=== PATIENT | female | born 1980 | race Caucasian/White ===

== ENCOUNTER 2020-06-25 06:31 | Outpatient (REF) | payer OTHER, SELFPAY ==
[2020-06-25 07:59] LABS: MANUAL DIFF FLAG NO
[2020-06-25 08:10] LABS: Basophils Percent Auto 0.5 % (0-2); Eosinophils Absolute Auto 0.2 X10*3/uL (0.0-0.4); Eosinophils Percent Auto 2.2 % (0-4); Hematocrit 40.5 % (37-47); Hemoglobin 13.3 g/dl (12.0-16.0); Imm Gran Abs Auto 0.03 X10*3/uL (0.00-0.03); Imm Gran Pct Auto 0.4 % (0.0-0.4); Lymphocytes Absolute Auto 2.2 X10*3/uL (1.2-4.9); Lymphocytes Percent Auto 27.4 % (20-40); Mean Corpuscular HGB Conc 32.8 g/dl (31.0-35.0); Mean Corpuscular Hemoglobin 30.4 pg (27.0-33.0); Mean Corpuscular Volume 92.7 fL (80-98); Monocytes Absolute Auto 0.5 X10*3/uL (0.1-1.2); Monocytes Percent Auto 5.7 % (2-11); Neutrophils Absolute Auto 5.2 X10*3/uL (2.0-8.3); Neutrophils Percent Auto 63.8 % (45-73); Platelet Count 308 X10*3/uL (160-400); Red Blood Count 4.37 X10*6/uL (4.20-5.50); Red Cell Distribution Width 12.3 % (11.0-16.0); White Blood Count 8.1 X10*3/uL (4.8-10.8)
[2020-06-25 08:38] LABS: Alanine Aminotransferase 11 U/L (0-31); Albumin Level 4.1 g/dL (3.5-5.0); Alkaline Phosphatase 60 U/L (39-117); Anion Gap 11 (12-20); Aspartate Amino Transferase 14 U/L (5-31); Bilirubin Total 0.8 mg/dL (0.0-1.0); Blood Urea Nitrogen 15 mg/dL (9-16); Calcium 8.7 mg/dL (8.4-10.2); Carbon Dioxide 28 mmol/L (22-29); Chloride 103 mmol/L (96-108); Estimated Glomerular Filt Rate > 60; Glucose Fasting 84 mg/dL (60-99); Potassium 4.3 mmol/l (3.3-5.1); Sodium 138 mmol/L (135-145); Total Protein 6.8 g/dL (6.5-8.0)
[2020-06-25 09:00] LABS: TSH reflex Free T4 0.43 mIU/mL (0.32-4.0)
== END 2020-06-25 06:32 | disposition home or self-care (01) ==
LOC: HO.LAB 06:31
PROVIDERS: PCP Internal Medicine; Visit Provider Internal Medicine
DX: E03.9 Hypothyroidism, unspecified (principal); R25.1 Tremor, unspecified
CPT/HCPCS: 36415; 80053; 84443; 85025

== ENCOUNTER 2020-07-09 16:08 | Outpatient (REF) | payer OTHER, SELFPAY | END 2020-07-09 16:09 | disposition home or self-care (01) | LOC: HO.LAB 16:08 | PROVIDERS: PCP Internal Medicine; Visit Provider Internal Medicine | DX: Z20.828 Contact with and (suspected) exposure to other viral communicable diseases (principal) | CPT/HCPCS: C9803; U0003 ==

== ENCOUNTER → 2020-07-20 14:51 | Outpatient (BNVA) | payer OTHER, SELFPAY | PROVIDERS: PCP Internal Medicine; Referring Provider Internal Medicine; Visit Provider Internal Medicine | DX: R00.2 Palpitations (principal); R00.0 Tachycardia, unspecified; E05.90 Thyrotoxicosis, unspecified without thyrotoxic crisis or storm; E04.2 Nontoxic multinodular goiter | CPT/HCPCS: 93005; 99202 ==

== ENCOUNTER → 2020-07-28 14:13 | Outpatient (REF) | payer OTHER, SELFPAY ==
--- NOTE | 2020-07-28 14:17 | ECG_ITS ---
Hook-up date: 2020-07-28 14:33:00 Duration: 47:59:00 Test Indications: UNSPEC. TACHYCARDIA Medications: [id number] QRS complexes 7 Ventricular ectopics which represent <1 % of total QRS comp. 7 Supraventricular ectopics which represent <1 % of total QRS comp. * Paced QRS complexs which represent % of total QRS comp. VENTRICULAR ECTOPY 7 Isolated 0 Bigeminal Cycles 0 Couplets 0 Runs 0 Beats in Runs * Beats LONGEST at * BPM at :: -- * Beats FASTEST at * BPM at :: -- SUPRAVENTRICULAR ECTOPY 7 Isolated 0 Couplets 0 Runs 0 Beats in Runs * Beats LONGEST at * BPM at :: -- * Beats FASTEST at * BPM at :: -- HEART RATES 50 MIN at 05:53:33 2020-07-29 90 AVG 151 MAX at 16:02:38 2020-07-28 LONGEST RR 1.4080 secs at 05:53:27 2020-07-29 S-T LEVELS Channel 1 - 128 mm at 14:33:00 2020-07-28 - 128 mm at 14:33:00 2020-07-28 Channel 2 - 128 mm at 14:33:00 2020-07-28 - 128 mm at 14:33:00 2020-07-28 Channel 3 - 128 mm at 03:35:21 -- - 128 mm at 03:35:21 Basic rhythm Normal sinus rhythm No long pause or profound bradycardia Rare ectopics Patient did not report any symptoms in the diary Referred By: Amelie Fu Overread By: BRENDAN CARTAGENA MD
== END ==
LOC: HO.CARD 14:13
PROVIDERS: PCP Internal Medicine; Visit Provider Internal Medicine
DX: R00.0 Tachycardia, unspecified (principal)
CPT/HCPCS: 93225; 93226

== ENCOUNTER → 2020-08-05 14:08 | Outpatient (REF) | payer OTHER, SELFPAY ==
--- NOTE | 2020-08-05 14:09 | CA_ITS ---
Transthoracic Echocardiogram Patient (Last, First, Middle): Keke Sanchez J Gender: Female Date of : 1980 Age: 40 Procedure Date: 08/05/2020 Procedure Type: Transthoracic Echocardiogram Location: OP Height: 165.1 cm Weight: 83.92 kg BSA: 1.91 m2 Heart Rate: bpm BP: 100 / 56 mmHg Polytechnic Registrar: KIRK Dawn MD: Baljeet Lerner MD Utility Teller: Pawan Flores MD Symptoms: R00.2 - Palpitations Study Quality: Good ECG Rhythm: Sinus Conclusions: - Normal study Findings Left Ventricle Normal left ventricular size, thickness, and systolic function. The visually estimated ejection fraction is between 60-65%. Diastolic function is normal for age. Right Ventricle Normal right ventricular cavity size and systolic function. Atria Both atria are normal in size. There is no evidence of interatrial shunt. Aortic Valve Normal aortic valve structure and function. There is no aortic valve stenosis. There is no aortic valve regurgitation. Mitral Valve Normal mitral valve structure and function. There is trace mitral valve regurgitation. There is no mitral valve stenosis. Pulmonic Valve The pulmonic valve is likely normal. There is trace pulmonic valve regurgitation. Tricuspid Valve Normal tricuspid valve structure. There is trace tricuspid valve regurgitation. The right ventricular systolic pressure is normal. The right ventricular systolic pressure is 20 mmHg. Normal right atrial pressure. There is no evidence of pulmonary hypertension. Great Vessels All visible segments of the aorta are normal in size. The pulmonary artery was not well visualized. Venous The inferior vena cava is normal in size and collapses greater than 50% with inspiration. Pericardium/Pleural There is no evidence of pericardial effusion. Prior Study Comparison No prior study available for comparison. Measurements 2D Linear Measurements RVIDd: 3.36 RVIDd Index: 1.76 IVSd: 0.92 0.6-0.9/0.6-1.0 cm LVIDd: 4.87 3.9-5.3/4.2-5.9 cm LVIDd Index: 2.55 2.4-3.2/2.2-3.1 cm/m2 LVIDs: 3.26 2.0-3.6 cm LVPWd: 0.76 0.7-1.1 cm Ao Root: 2.60 2.1-3.5 cm LA Diam: 3.50 2.7-3.8/3.0-4.0 cm LAIDs Index: 1.83 1.5-2.3 cm/m2 LV Mass: 172.26 67-162/88-224 g LV Mass Index: 90.19 43-95/49-115 g/m2 LVOT Diam: 2.20 3.0+(-)1.3 cm 2D Systolic Function EF 4C: 66.40 >55% EF 2C: 63.70 >55% EF BiP: 64.40 >55% Mitral Valve MV Pk E: 0.73 MV PK A: 0.52 MV Decel Time: 240.00 E/A: 1.40 E'Lateral: 16.50 E'Medial: 9.36 E/E' Med: 7.80 E/E' Lat: 4.40 Aortic Valve AoV Pk Aashish: 1.45 AoV Mn Aashish: 0.99 AoV VTI: 0.30 AoV Pk Grad: 8.00 Aov Mn Grad: 4.00 [place] Cont.VTI: 2.77 AI Pk Aashish: 2.06 AI Snyder: 7.51 LVOT LVOT Pk Aashish: 1.04 LVOT Mn Aashish: 0.70 LVOT VTI: 0.22 LVOT Pk Grad: 4.00 LVOT Mn Grad: 2.00 LVOT Diam: 2.20 LVOT Area: 3.80 Diastolic Function MV Pk E: 0.73 MV Pk A: 0.52 E/A: 1.40 E'Medial: 9.36 E/E' Med: 7.80 E' Laterial: 16.50 E/E' Lat: 4.40 Tricuspid Valve TR Pk Aashish: 2.06 TR Pk Grad: 17.00 RA Press: 3.00 RVSP: 20.00 Great Vessels Aorta Ao Root-2D: 2.60 2.0-3.7 cm Ao Asc: 2.80 2.1-3.4 cm Ao Arch: 2.30 Updated in Other Vendor System with Status of Final Pawan Flores MD electronically signed on 08/05/2020 6:07:22 PM with status of Final
== END ==
LOC: HO.CARD 14:08
PROVIDERS: Visit Provider Internal Medicine
DX: R00.2 Palpitations (principal)
CPT/HCPCS: 93306

== ENCOUNTER → 2020-08-12 14:27 | Outpatient (BNVA) | payer OTHER, SELFPAY | PROVIDERS: PCP Internal Medicine; Referring Provider Internal Medicine; Visit Provider Internal Medicine | DX: Z76.89 Persons encountering health services in other specified circumstances (principal) ==

== ENCOUNTER 2020-09-02 10:30 | Outpatient (REF) | payer OTHER, SELFPAY ==
--- NOTE | 2020-09-02 10:32 | US_ITS ---
EXAMINATION: US THYROID CLINICAL INFORMATION: Multinodular goiter. COMPARISON: Nuclear thyroid scan 06/28/2019. Ultrasound thyroid soft tissue neck/head 06/21/2019. TECHNIQUE: Linear transducer vasquez-scale and color Doppler examination with attention to the region of the thyroid. FINDINGS: SIZE: Measurements of the thyroid lobes and nodules are given in sagittal, anteroposterior and transverse dimensions respectively. Right Thyroid Lobe: 6.3 x 2.1 x 2.5 cm, volume 17.7 mL. Previously 7.2 x 2.6 x 2.3 cm, volume 22.5 mL. Parenchyma: The gland echotexture is heterogeneous. Thyroid vascularity is increased. Left Thyroid Lobe: 6.8 x 2.5 x 3.0 cm, volume 26.2 mL. Previously 7.7 x 2.5 x 2.6 cm, volume 26.2 mL. Parenchyma: The gland echotexture is heterogeneous. Thyroid vascularity is increased. Isthmus: 0.51 cm in maximum AP dimension. Previously 0.40 cm. RIGHT THYROID LOBE: There are 4 nodules seen. 1. Location: Midpole posterior, lateral. Size: 0.4 x 0.3 x 0.4 cm. Previous: 0.5 x 0.3 x 0.4 cm. Nodule characteristics: Hypoechoic. 2. Location: Midpole posterior, medial, adjacent to the first. Size: 0.6 x 0.4 x 0.6 cm. Previous: 0.5 x 0.3 x 0.3 cm. Nodule characteristics: Hypoechoic. 3. Location: Midpole, mid. Size: 0.5 x 0.4 x 0.4 cm. Previous: 0.6 x 0.3 x 0.4 cm. Nodule characteristics: Hypoechoic and isoechoic components. 4. Location: Midpole medial/right isthmus. Size: 0.6 x 0.4 x 0.5 cm. Previous: 0.5 x 0.3 x 0.4 cm. Nodule characteristics: Heterogeneous hypoechoic. ISTHMUS: No nodules. LEFT THYROID LOBE: There are 4 nodules seen. 1. Location: Upper pole, lateral. Size: 0.6 x 0.4 x 0.4 cm. Previous: 0.5 x 0.4 x 0.4 cm. Nodule characteristics: Anechoic with thin septation. 2. Location: Midpole, mid. Size: 0.9 x 0.6 x 0.7 cm. Previous: 1.4 x 0.6 x 0.9 cm. Nodule characteristics: Cyst with low-grade echoes. 3. Location: Mid. Size: 0.8 x 0.5 x 0.6 cm. Previous: 0.6 x 0.5 x 0.5 cm. Nodule characteristics: Anechoic, decreased internal echoes. 4. Location: Lower pole, posterior. Size: 2.4 x 1.4 x 1.6 cm. Previous: 1.9 x 1.2 x 1.2 cm. Nodule characteristics: Heterogeneous hypoechoic. NODES: No lymphadenopathy is seen in the tissue surrounding the thyroid gland. US/US thyroid IMPRESSION: 1. Multinodular thyroid gland as detailed above. A heterogeneous nodule in the posterior lower pole the left lobe as mildly increased in size of the 2.4 cm. Further evaluation with FNA biopsy is recommended. Other nodules show mixed interval changes detailed above. A follow-up thyroid ultrasound is also recommended in 6 months.
== END 2020-09-02 10:31 | disposition home or self-care (01) ==
LOC: HO.HMGCX 10:30
PROVIDERS: Visit Provider Internal Medicine
DX: E04.2 Nontoxic multinodular goiter (principal)
CPT/HCPCS: 76536

== ENCOUNTER → 2020-09-08 13:08 | Outpatient (REF) | payer OTHER, SELFPAY ==
--- NOTE | 2020-09-08 13:11 | HM_ITS ---
TEST PERFORMED: Cardiac event monitoring. INDICATION: Palpitations. ENROLLMENT PERIOD: 09/08/2020 to 10/08/2020 - 30 days. FINDINGS: In the above monitoring period, the underlying rhythm was sinus. The rates were between 91 to 111 per minute. There was no evidence of any significant supraventricular or ventricular arrhythmia noted during this time. There were also no patient activated events during this time. CONCLUSION: Essentially unremarkable 30-day event monitoring showing sinus rhythm only. Baljeet Lerner MD HS/MAROCS / [id number]
== END ==
LOC: HO.CARD 13:08
PROVIDERS: PCP Internal Medicine; Visit Provider Internal Medicine
DX: R00.2 Palpitations (principal)
CPT/HCPCS: 93270

== ENCOUNTER 2020-10-22 08:01 | Outpatient (REF) | payer OTHER, SELFPAY ==
--- NOTE | 2020-10-22 08:31 | PM.OP ---
Brief Operative Note Date of Service: 10/22/20 Surgeon: Jen Honeycutt, DO This is doctor Jen Honeycutt. This is an ultrasound-guided fine-needle aspiration report. Date of Examination:10.22.2020 Indication: Multinodular Thyroid Porcedure: Procedure was explained to the patient. Alternatives, the risk and benefits were discussed. Written consent was obtained. A time-out was also obtained. After sterile preparation, fine-needle aspiration of a LMP 2.4 cm thyroid nodule was performed using direct ultrasound guidance to confirm accurate needle placement. Four aspirations were made, one using a 25 guage needle, and 3 using 27 gauge needles. Samples were submitted for cytology. One pass was dedicated for [employer] sequencing purchasing administrator testing. The patient tolerated the procedure well. Aftercare instructions were provided. Impression: Uncomplicated fine needle aspiration biopsy of a LMP 2.4 cm thyroid nodule under ultrasound guidance. Estimated blood loss (mL): 0
[2020-10-22] MEDS: Lidocaine HCl 1 % MPF 5 ML VIAL SUBCUT (11:26)
== END 2020-10-22 08:02 | disposition home or self-care (01) ==
LOC: HO.US 08:01
PROVIDERS: PCP Student in an Organized Health Care Education/Training Program; Visit Provider Internal Medicine
DX: E04.2 Nontoxic multinodular goiter (principal); E05.90 Thyrotoxicosis, unspecified without thyrotoxic crisis or storm; R00.2 Palpitations; R00.0 Tachycardia, unspecified
CPT/HCPCS: 10005; 88172; 88173; 88177; 99212

== ENCOUNTER 2020-11-12 08:33 | Outpatient (REF) | payer OTHER, SELFPAY ==
[2020-11-12 10:43] LABS: Free T4 (Free Thyroxine) 1.03 ng/dL (0.71-1.85); Vitamin D 25-OH Total 32.4 ng/mL (>30)
[2020-11-13 13:12] LABS: Triiodothyronine T3 Total 98 ng/dL (76-181)
== END 2020-11-12 08:34 | disposition home or self-care (01) ==
LOC: HO.LAB 08:33
PROVIDERS: PCP Internal Medicine; Visit Provider Internal Medicine
DX: E05.90 Thyrotoxicosis, unspecified without thyrotoxic crisis or storm (principal); E04.2 Nontoxic multinodular goiter; E55.9 Vitamin D deficiency, unspecified; F41.9 Anxiety disorder, unspecified; Z87.891 Personal history of nicotine dependence; Z79.899 Other long term (current) drug therapy
CPT/HCPCS: 36415; 82306; 84439; 84443; 84480; 99212

== ENCOUNTER → 2020-11-16 10:31 | Outpatient (BNVA) | payer OTHER, SELFPAY | PROVIDERS: PCP Internal Medicine; Visit Provider Internal Medicine ==

== ENCOUNTER 2021-02-17 07:58 | Outpatient (REF) | payer OTHER, SELFPAY ==
[2021-02-17 09:34] LABS: Free T4 (Free Thyroxine) 1.03 ng/dL (0.71-1.85); Vitamin D 25-OH Total 27.5 ng/mL (>30)
[2021-02-18 08:12] LABS: Triiodothyronine T3 Total 102 ng/dL (76-181)
== END 2021-02-17 07:59 | disposition home or self-care (01) ==
LOC: HO.LAB 07:58
PROVIDERS: PCP Internal Medicine; Visit Provider Internal Medicine
DX: E05.90 Thyrotoxicosis, unspecified without thyrotoxic crisis or storm (principal); E04.2 Nontoxic multinodular goiter; E55.9 Vitamin D deficiency, unspecified; Z87.891 Personal history of nicotine dependence
CPT/HCPCS: 36415; 82306; 84439; 84443; 84480

== ENCOUNTER 2021-03-11 08:43 | Outpatient (REF) | payer OTHER, SELFPAY ==
[2021-03-12 11:36] LABS: BV Int Neg Control Negative (Negative); BV Int Pos Control Positive (Positive)
[2021-03-12 11:47] LABS: CT PCR NOT DETECTED (Not Detect.); NG PCR NOT DETECTED (Not Detect.)
== END 2021-03-11 08:44 | disposition home or self-care (01) ==
LOC: HO.LAB 08:43
PROVIDERS: Visit Provider Obstetrics & Gynecology
DX: Z11.3 Encounter for screening for infections with a predominantly sexual mode of transmission (principal); N76.0 Acute vaginitis; B96.89 Other specified bacterial agents as the cause of diseases classified elsewhere
CPT/HCPCS: 87480; 87491; 87510; 87591; 87660; 99212

== ENCOUNTER 2021-03-24 08:45 | Outpatient (REF) | payer OTHER, SELFPAY ==
[2021-03-26 17:51] LABS: HPV mRNA E6/E7 rflx Not Detected (Not Detected)
== END 2021-03-24 08:46 | disposition home or self-care (01) ==
LOC: HO.LAB 08:45
PROVIDERS: Visit Provider Advanced Practice Midwife
DX: Z01.419 Encounter for gynecological examination (general) (routine) without abnormal findings (principal); Z11.51 Encounter for screening for human papillomavirus (HPV)
CPT/HCPCS: 87624; 88142

== ENCOUNTER 2021-07-16 15:59 | Outpatient (REF) | payer OTHER, SELFPAY ==
--- NOTE | ~2021-07-16 | US_ITS ---
EXAMINATION: US THYROID CLINICAL INFORMATION: Nontoxic multinodular goiter. COMPARISON: Ultrasound soft tissue head/neck thyroid dated 09/02/2020 and 06/21/2019. TECHNIQUE: Linear transducer grayscale and color Doppler examination with attention to the region of the thyroid. FINDINGS: SIZE: Measurements of the thyroid lobes and nodules are given in sagittal, anteroposterior and transverse dimensions respectively. Right Thyroid Lobe: 7.3 x 2.3 x 3.0 cm, volume 26.0 mL. Previously 6.3 x 2.1 x 2.5 cm, volume 17.7 mL. Parenchyma: The gland echotexture is heterogeneous. Thyroid vascularity is increased. Left Thyroid Lobe: 7.0 x 2.4 x 2.8 cm, volume 22.8 mL. Previously 6.8 x 2.5 x 3.0 cm, volume 26.2 mL. Parenchyma: The gland echotexture is heterogeneous. Thyroid vascularity is increased. Isthmus: 0.5 cm in maximum AP dimension. Previously 0.5 cm. Estimated total number of nodules greater than or equal to 1 cm: 1. Wafer Cleaner nodules are described as follows: 1. Location: Left mid. Size: 1.4 x 1.1 x 0.7 cm, volume 0.55 mL. Previously: 1.1 x 0.8 x 1.4 cm, volume 0.64 mL. Nodule characteristics: Composition: Solid (2). Echogenicity: Hypoechoic (2). Shape: Not taller than wide (0). Margins: Smooth (0). Echogenic Foci: None (0). ACR TI-RADS total points: 4 ACR TI-RADS category: 4 Significant change in size (>/= 20% in 2 dimensions and minimal increase of 2 mm or 50% or greater increase in volume): Change in features: Change in ACR TI-RADS risk category: 2. Location: Right mid. Size: 0.7 x 0.9 x 0.4 cm, volume 0.13 mL. Previously: 0.6 x 0.5 x 0.6 cm, volume 0.09 mL. Nodule characteristics: Composition: Solid/almost completely solid (2). Echogenicity: Hypoechoic (2). Shape: Not taller than wide (0). Margins: Smooth (0). Echogenic Foci: None (0). ACR TI-RADS total points: 4 ACR TI-RADS category: 4 Significant change in size (>/= 20% in 2 dimensions and minimal increase of 2 mm or 50% or greater increase in volume): Change in features: Change in ACR TI-RADS risk category: 3. Location: Right mid. Size: 0.4 x 0.4 x 0.3 cm, volume 0.02 mL. Previously: 0.6 x 0.3 x 0.5 cm, volume 0.05 mL. Nodule characteristics: Composition: Mixed cystic and solid (1). Echogenicity: Isoechoic (1). Shape: Not taller than wide (0). Margins: Smooth (0). Echogenic Foci: None (0). ACR TI-RADS total points: 2 ACR TI-RADS category: 2 Significant change in size (>/= 20% in 2 dimensions and minimal increase of 2 mm or 50% or greater increase in volume): Change in features: Change in ACR TI-RADS risk category: 4. Location: Right mid. Size: 0.5 x 0.4 x 0.4 cm, volume 0.04 mL. Previously: 0.5 x 0.4 x 0.4 cm, volume 0.04 mL. Nodule characteristics: Composition: Mixed cystic and solid (1). Echogenicity: Cannot be determined (1). Shape: Not taller than wide (0). Margins: Smooth (0). Echogenic Foci: None (0). ACR TI-RADS total points: 2 ACR TI-RADS category: 2 Significant change in size (>/= 20% in 2 dimensions and minimal increase of 2 mm or 50% or greater increase in volume): Change in features: Change in ACR TI-RADS risk category: NODES: No lymphadenopathy is seen in the tissue surrounding the thyroid gland. US/US thyroid IMPRESSION: Enlarged heterogeneous thyroid gland with multiple bilateral nodules. The right lobe appears increased in size and the left lobe appears slightly decreased in size compared to previous exams. The pulmonary nodules do not appear appreciably changed. ACR TI-RADS RECOMMENDATION REFERENCE: Ultrasound-guided fine-needle aspiration, followup ultrasound, no further follow up. * TR1 (0 point) and TR 2 (2 points): No FNA or follow up * TR3 (3 points): FNA if more than or equal to 2.5 cm in maximum dimension, followup ultrasound in 1, 3 and 5 years if 1.5 to 2.4 cm in maximum dimension. * TR4 (4-6 points): FNA if more than or equal to 1.5 cm in maximum dimension, followup ultrasound in 1, 2, 3 and 5 years if 1 to 1.4 cm in maximum dimension. * TR5 (more than or equal to 7 points): FNA if more than or equal to 1 cm in maximum dimension, followup ultrasound every year for 5 years if 0.5 to 0.9 cm in maximum dimension. * TR3, TR4 or TR5 nodules that are below the size threshold for follow up receive no follow up.
== END 2021-07-16 16:00 | disposition home or self-care (01) ==
LOC: HO.US 15:59
PROVIDERS: Visit Provider Internal Medicine
DX: E04.2 Nontoxic multinodular goiter (principal)
CPT/HCPCS: 76536

== ENCOUNTER 2022-02-15 16:35 | Outpatient (REF) | payer OTHER, SELFPAY ==
[2022-02-15 18:44] LABS: Free T4 (Free Thyroxine) 1.06 ng/dL (0.71-1.85); Thyroid Stimulating Hormone 0.51 uIU/mL (0.32-4.0); Vitamin D 25-OH Total 20.8 ng/mL (>30)
[2022-02-17 23:22] LABS: Triiodothyronine T3 Total 122 ng/dL (76-181)
== END 2022-02-15 16:36 | disposition home or self-care (01) ==
LOC: HO.LAB 16:35
PROVIDERS: PCP Internal Medicine; Visit Provider Internal Medicine
DX: E04.2 Nontoxic multinodular goiter (principal); E55.9 Vitamin D deficiency, unspecified
CPT/HCPCS: 36415; 82306; 84439; 84443; 84480

== ENCOUNTER 2023-01-18 15:27 | Outpatient (REF) | payer OTHER, SELFPAY ==
--- NOTE | ~2023-01-18 | US_ITS ---
EXAMINATION: US THYROID CLINICAL INFORMATION: Nontoxic multinodular goiter. COMPARISON: Ultrasound thyroid 07/16/2021 and 09/02/2020. US-guided thyroid biopsy 10/22/2020. TECHNIQUE: Linear transducer grayscale and color Doppler examination with attention to the region of the thyroid. FINDINGS: SIZE: Measurements of the thyroid lobes and nodules are given in sagittal, anteroposterior and transverse dimensions respectively. Right Thyroid Lobe: 6.9 x 2.2 x 2.4 cm, volume 19.0 mL. Previously 7.3 x 2.3 x 3.0 cm, volume 26.0 mL. Parenchyma: The gland echotexture is heterogeneous. Thyroid vascularity is increased. Left Thyroid Lobe: 7.5 x 1.9 x 2.9 cm, volume 21.6 mL. Previously 7.0 x 2.4 x 2.8 cm, volume 22.8 mL. Parenchyma: The gland echotexture is heterogeneous. Thyroid vascularity is increased. Isthmus: 0.5 cm in maximum AP dimension. Previously 0.5 cm. Estimated total number of nodules greater than or equal to 1 cm: 1. Production Control Clerk nodules are described as follows: 1. Location: Left mid. Size: 1.3 x 1.2 x 1.1 cm, volume 0.93 mL. Previously: 1.4 x 1.1 x 0.7 cm, volume 0.55 mL. Nodule characteristics: Composition: Solid/almost completely solid (2). Echogenicity: Hypoechoic (2). Shape: Not taller than wide (0). Margins: Smooth (0). Echogenic Foci: None (0). ACR TI-RADS total points: 4 Previous: 4 ACR TI-RADS category: 4 Previous: 4 Significant change in size (>/= 20% in 2 dimensions and minimal increase of 2 mm or 50% or greater increase in volume): Yes Change in features: No Change in ACR TI-RADS risk category: No 2. Location: Right mid. Size: 0.8 x 0.6 x 1.1 cm, volume 0.29 mL. Previously: 0.7 x 0.9 x 0.4 cm, volume 0.13 mL. Nodule characteristics: Composition: Solid/almost completely solid (2). Echogenicity: Hypoechoic (2). Shape: Not taller than wide (0). Margins: Smooth (0). Echogenic Foci: None (0). ACR TI-RADS total points: 4 Previous: 4 ACR TI-RADS category: 4 Previous: 4 Significant change in size (>/= 20% in 2 dimensions and minimal increase of 2 mm or 50% or greater increase in volume): Yes Change in features: No Change in ACR TI-RADS risk category: No 3. Location: Right mid. Size: 0.5 x 0.4 x 0.6 cm, volume 0.06 mL. Previously: 0.5 x 0.4 x 0.4 cm, volume 0.04 mL. Nodule characteristics: Composition: Mixed cystic and solid (1). Echogenicity: Isoechoic (1). Shape: Not taller than wide (0). Margins: Smooth (0). Echogenic Foci: None (0). ACR TI-RADS total points: 2 Previous: 2 ACR TI-RADS category: 2 Previous: 2 Significant change in size (>/= 20% in 2 dimensions and minimal increase of 2 mm or 50% or greater increase in volume): Yes Change in features: No Change in ACR TI-RADS risk category: No 4. Location: Right isthmus mid. Size: 0.8 x 0.3 x 0.7 cm, volume 0.09 mL. Previously: 0.4 x 0.4 x 0.3 cm, volume 0.02 mL. Nodule characteristics: Composition: Mixed cystic and solid (1). Echogenicity: Isoechoic (1). Shape: Not taller than wide (0). Margins: Smooth (0). Echogenic Foci: None (0). ACR TI-RADS total points: 2 Previous: 2 ACR TI-RADS category: 2 Previous: 2 Significant change in size (>/= 20% in 2 dimensions and minimal increase of 2 mm or 50% or greater increase in volume): Change in features: No Change in ACR TI-RADS risk category: No NODES: No lymphadenopathy is seen in the tissue surrounding the thyroid gland. US/US thyroid IMPRESSION: 1. Bilateral thyroid nodules are seen, as detailed. Recommend continued thyroid ultrasound surveillance. 2. There is a diffuse goiter. 3. There is heterogeneous thyroid echotexture and increased vascularity, which can be associated with thyroiditis. ACR TI-RADS RECOMMENDATION REFERENCE: Ultrasound-guided fine-needle aspiration, followup ultrasound, no further follow up. * TR1 (0 point) and TR2 (2 points): No FNA or follow up. * TR3 (3 points): FNA if more than or equal to 2.5 cm in maximum dimension, followup ultrasound in 1, 3 and 5 years if 1.5 to 2.4 cm in maximum dimension. * TR4 (4-6 points): FNA if more than or equal to 1.5 cm in maximum dimension, followup ultrasound in 1, 2, 3 and 5 years if 1 to 1.4 cm in maximum dimension. * TR5 (more than or equal to 7 points): FNA if more than or equal to 1 cm in maximum dimension, followup ultrasound every year for 5 years if 0.5 to 0.9 cm in maximum dimension. * TR3, TR4 or TR5 nodules that are below the size threshold for followup receive no follow up.
== END 2023-01-18 15:28 | disposition home or self-care (01) ==
LOC: HO.HMGCX 15:27
PROVIDERS: PCP Student in an Organized Health Care Education/Training Program; Visit Provider Internal Medicine
DX: E04.2 Nontoxic multinodular goiter (principal)
CPT/HCPCS: 76536

== ENCOUNTER → 2023-02-20 10:22 | Outpatient (BNVA) | payer OTHER, SELFPAY | PROVIDERS: PCP Student in an Organized Health Care Education/Training Program; Visit Provider Internal Medicine | DX: E05.90 Thyrotoxicosis, unspecified without thyrotoxic crisis or storm (principal); E04.2 Nontoxic multinodular goiter; E55.9 Vitamin D deficiency, unspecified | CPT/HCPCS: 99212 ==

== ENCOUNTER 2023-08-17 08:32 | Outpatient (AMB) | payer OTHER, SELFPAY ==
[2023-08-17 08:35] VITALS: BP 120/80; BMI 35.8
--- NOTE | 2023-08-17 08:35 | A.OFFPC_ITS ---
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 Accompanied by: Self / Same As Patient Allergies No Known Allergies Allergy (Mild, Verified 08/17/23 08:48) NOT APPLICABLE Medication List - Last Reconciled 08/17/23 by Amelie Fu MD cholecalciferol (vitamin D3) 50 mcg PO DAILY 30 days lorazepam 0.5 mg PO DAILY PRN 30 days Tobacco use date assessed: 08/17/23 Dental Screening Dental Screen Date: 08/17/23 Did you have a dental visit in the last 12 months?: No Did you have a dental problem in the last 6 months where you did not have access to dental care?: No Was dental information given to patient?: Yes HPI HPI Comments History of Present Illness Details This is a 43-year-old female that comes for her physical exam. Has never had a mammogram. Last Pap smear was 2020 was normal. No chest pain or shortness of breath. Has multinodular thyroid and would like to see an dice person once a year. [facility] Medical History (Updated 08/17/23 @ 09:00 by Amelie Fu MD) Mild recurrent major depression PARK (generalized anxiety disorder) Vitamin D deficiency Anxiety Multinodular thyroid Subclinical hyperthyroidism Tachycardia Tremor Tremor Surgical History Hx of biopsy History of cryosurgery History of tubal ligation Family History Father Hypertension Chronic mental illness Alcoholism Substance use disorder Mother No problems noted. Maternal Grandfather Diabetes Maternal Aunt Chronic mental illness Social History (Updated 08/17/23 @ 08:51 by Amelie Fu MD) Household Members: Children Housing: Apartment Alcohol intake: current Alcohol intake frequency: a few times a week Alcohol type: hard liquor Patient Tobacco Use Status: Former Tobacco user e-Cigarette/Vaping Use: Never Used Second Hand Smoke Exposure: No service: No Current occupational status: employed Current occupational exposures/hazards: No Gender identity: Female Cognitive needs: No Hearing needs: No Vision needs: Yes Female Reproductive History Menstrual Age of Menarche: 11 Questionnaire PHQ-9 Over the last 2 weeks, how often have you been bothered by any of the following problems? 1. Little interest or pleasure in doing things: not at all 2. Feeling down, depressed, or hopeless: not at all 3. Trouble falling or staying asleep, or sleeping too much: not at all 4. Feeling tired or having little energy: not at all 5. Poor appetite or overeating: not at all 6. Feeling bad about yourself - or that you are a failure or have let yourself or your family down: not at all 7. Trouble concentrating on things, such as reading the newspaper or watching television: not at all 8. Moving or speaking so slowly that other people could have noticed. Or the opposite - being so fidgety or restless that you have been moving around a lot more than usual: not at all 9. Thoughts that you would be better off or of hurting yourself in some way: not at all Total score: 0 Depression Screening Interpretation: Negative Depression Screening Done: Yes 56063 - PHQ-9 Billing: Yes Source: Developed by Drs. Hugh Watts, Isabell Pollard, Darrel Berg and colleagues, with an educational devon from [employer]. Thrive Questionnaire Date Thrive assessed: 08/17/23 I am a: Patient What is your living situation today?: I have a steady place to live Within the past 12 months, did the food you bought not last and you didn't have the money to get more?: Never true Within the past 12 months, did you worry whether your food would run out before you got money to buy more?: Never true Do you have trouble paying for medicines?: No Do you have trouble getting transportation to medical appointments?: No Do you have trouble paying your heating and electricity bill?: No Do you have trouble taking care of your child, family member or friend?: No Do you have trouble with day-to-day activities such as bathing, preparing meals, shopping, managing finances, etc.?: No Are you currently unemployed and looking for a job?: No Are you interested in more education?: No Please select the resources that you would like help with: None Currently or been in a relationship where the following occur: no concerns reported AUDIT C Alcohol Use Questionnaire (AUDIT-C) 1. How often do you have a drink containing alcohol?: 2-4 times a month 2. How many drinks containing alcohol do you have on a typical day when you are drinking?: 3 or 4 3. How often do you have six or more drinks on one occasion?: Never Total Score: 3 PARK-7 AMB Questionnaire PARK-7 Date PARK - 7 assessed: 08/17/23 Feeling nervous, anxious, or on edge: 3 = Nearly every day Not being able to stop or control worryin = Several days Worrying too much about different things: 3 = Nearly every day Trouble relaxin = Not at all Being so restless that it is hard to sit still: 0 = Not at all Becoming easily annoyed or irritable: 3 = Nearly every day Feeling afraid as if something awful might happen: 0 = Not at all Total PARK-7 score (0-4 normal; 5-9 mild; 10-14 moderate; 15-21 severe): 10 Source: Developed by Drs. Hugh Watts, Isabell Pollard, Darrel Berg and colleagues, with an educational devon from [employer]. PARK-7 Assessment Billing PARK-7 Assessment Tool: PARK-7 Assessment 27249 Review of Systems Const All systems reviewed & are unremarkable except as noted in HPI and below Eyes Reports no additional complaints, Denies change in vision and Denies other visual disturbances Card Denies chest pain at rest, Denies chest pain with activity, Denies edema, Denies irregular heart rhythm, Denies claudication, Denies dyspnea, Denies dyspnea on exertion, Denies orthopnea, Denies paroxysmal nocturnal dyspnea and Denies slow heart rate Resp Denies cough, Denies dyspnea and Denies dyspnea on exertion GI Denies abdominal pain, Denies change in bowel habits, Denies excessive flatus, Denies nausea and Denies vomiting Denies urinary incontinence, Denies urinary hesitancy and Denies urinary urgency Musc Denies abnormal gait, Denies atrophy, Denies deformity and Denies limited range of motion Skin/Breast Denies bleeding lesions, Denies changing lesions and Denies rash Neuro Denies abnormal gait, Denies behavioral changes, Denies confusion and Denies lack of coordination Psych Denies behavioral changes and Denies confusion Physical exam (Primary Care) Vital Signs: Last Vital Signs BP 120/80 08/17/23 08:35 BMI result Body Mass Index 35.8 Tobacco/Smoking Status: Tobacco use Status Tobacco use date assessed 08/17/23 08/17/23 08:40 Patient Tobacco Use Status Former Tobacco user 08/17/23 08:40 e-Cigarette/Vaping Use Never Used 08/17/23 08:40 PHQ-9: PHQ-9 Score PHQ-9: Total score 0 08/17/23 08:40 Depression Screening Interpretation: Negative Thrive Assessment: Date of Thrive Assessment Date Thrive assessed 08/17/23 08/17/23 08:40 Currently or been in a relationship where the following occur: no concerns reported Const General: No confusion Orientation/consciousness: patient oriented x3 and No confusion HENMT Head: Yes normal to inspection, Yes normocephalic and Yes atraumatic Ears: external ears normal Eyes General: appearance normal, both eyes and all related structures Eyelids: Yes eyelids normal Conjunctivae: conjunctivae normal Neck Neck: Yes normal visual inspection and Yes supple Thyroid: multiple palpable nodules Resp Effort & Inspection: normal respiratory effort Auscultation: clear to auscultation bilaterally Cardio Jugular venous distension: no JVD Rate: regular rate Rhythm: regular rhythm Heart sounds: S1 normal heart sound present and S2 normal heart sound present GI Inspection: Yes normal to inspection Palpation (GI): Soft to palpation and nontender Auscultation: normal bowel sounds Skin General skin exam: no rashes or lesions noted Neuro General: patient oriented x3, no focal motor deficits and No confusion Extrem General: Yes full ROM Psych Appearance: grossly normal Office Procedures Flu Questionnaire Does the patient have a severe egg allergy?: No Immunizations flu vacc [id number] 6mos up(PF) 60 mcg(15 mcgx4)/0.5 mL IM syringe Performing Provider: Amelie Fu MD [facility] Documented (not given) by: YOUSIF Salas on 08/17/23 08:42 Reason Not Given: Patient Refused Assessment and Plan Assessment & Plan (1) Physical exam: Code(s): Z00.00 - Encounter for general adult medical examination without abnormal findings Plan: Repeat in a year. Orders: Orders Influenza [id number] Immunization Today Z23 - Encounter for immunization MM screening mammo BI Today Z12.31 - Encounter for screening mammogram for malignant neoplasm of breast Thyroid Stimulating Hormone Today E04.2 - Nontoxic multinodular goiter Free T4 (Free Thyroxine) Today E04.2 - Nontoxic multinodular goiter Lipid Panel Today Z00.00 - Encounter for general adult medical examination without abnormal findings Vitamin D 25-OH Total Today E55.9 - Vitamin D deficiency, unspecified Comprehensive [place]. Panel Fast Today Z00.00 - Encounter for general adult medical examination without abnormal findings Referrals Endocrinology Referral E04.2 - Nontoxic multinodular goiter Coding Level of Care Code Est Pt Prev Care 40-64y(18912) Diagnoses Physical exam Z00.00 Additional Codes PARK-7 Assessment Billing - PARK-7 Assessment Tool: PARK-7 Assessment 83868 ([id number]) Time Spent (min) 31
== END 2023-08-17 09:06 | disposition home or self-care (01) ==
PROVIDERS: Visit Provider Internal Medicine
DX: Z00.00 Encounter for general adult medical examination without abnormal findings (principal)
CPT/HCPCS: 99396

== ENCOUNTER 2023-09-09 08:09 | Outpatient (REF) | payer OTHER, SELFPAY ==
--- NOTE | ~2023-09-09 | MM_ITS ---
EXAMINATION: MM SCREENING DIGITAL BREAST TOMOSYNTHESIS, BILATERAL CLINICAL INFORMATION: Screening. Asymptomatic. COMPARISON: Mammography: This is a baseline mammogram. TECHNIQUE: Digital breast tomosynthesis is performed in both the craniocaudal and mediolateral oblique views along with computer-aided detection (CAD). Synthesized 2D images are generated from the tomosynthesis. FINDINGS: There are scattered areas of fibroglandular density (ACR BI-RADS breast composition Category b). There are no significant masses, abnormal calcifications, or other abnormalities. MM/MM tomosynthesis screening BI IMPRESSION: No mammographic evidence of malignancy. ASSESSMENT: BI-RADS BI-RADS 1 - Negative RECOMMENDATION: Routine annual mammography screening. 1 year F/U This examination should not preclude the clinical evaluation of a suspicious palpable abnormality. This patient's information was entered into a reminder system with a target due date for their next mammogram.
== END 2023-09-09 08:10 | disposition home or self-care (01) ==
LOC: HO.MAMMO 08:09
PROVIDERS: PCP Internal Medicine; Visit Provider Internal Medicine
DX: Z00.00 Encounter for general adult medical examination without abnormal findings (principal); E04.2 Nontoxic multinodular goiter; E55.9 Vitamin D deficiency, unspecified; Z12.31 Encounter for screening mammogram for malignant neoplasm of breast
CPT/HCPCS: 36415; 77063; 77067; 80053; 80061; 82306; 84439; 84443

== ENCOUNTER → 2023-09-09 08:15 | Outpatient (BNV) | payer OTHER, SELFPAY | PROVIDERS: PCP Internal Medicine; Visit Provider Radiology Diagnostic Radiology | DX: Z12.31 Encounter for screening mammogram for malignant neoplasm of breast (principal) | CPT/HCPCS: 77063; 77067 ==

== ENCOUNTER 2024-02-01 10:22 | Outpatient (REF) | payer OTHER, SELFPAY ==
--- NOTE | ~2024-02-01 | US_ITS ---
EXAMINATION: US THYROID CLINICAL INFORMATION: Nontoxic multinodular goiter. COMPARISON: Ultrasound soft tissue head/neck thyroid dated 01/18/2023 and 07/16/2021. TECHNIQUE: Linear transducer grayscale and color Doppler examination with attention to the region of the thyroid. FINDINGS: SIZE: Measurements of the thyroid lobes and nodules are given in sagittal, anteroposterior and transverse dimensions respectively. Right Thyroid Lobe: 6.4 x 2.3 x 2.4 cm, volume 18.5 mL. Previously 6.9 x 2.2 x 2.4 cm, volume 19.0 mL. Parenchyma: The gland echotexture is heterogeneous. Thyroid vascularity is increased. Left Thyroid Lobe: 6.4 x 2.6 x 2.5 cm, volume 21.8 mL. Previously 7.5 x 1.9 x 2.9 cm, volume 21.6 mL. Parenchyma: The gland echotexture is heterogeneous. Thyroid vascularity is increased. Isthmus: 0.5 cm in maximum AP dimension. Previously 0.5 cm. Estimated total number of nodules greater than or equal to 1 cm: 1. Supervisor Shuttle Fitting nodules are described as follows: 1. Location: Left mid. Size: 0.9 x 0.6 x 0.7 cm, volume 0.2 mL. Previously: Not documented on the prior study. Nodule characteristics: Composition: Mixed cystic and solid (1). Echogenicity: Hypoechoic (2). Shape: Not taller than wide (0). Margins: Smooth (0). Echogenic Foci: None (0). ACR TI-RADS total points: 3. ACR TI-RADS category: 3. 2. Location: Left mid. Size: 0.7 x 0.5 x 0.9 cm, volume 0.2 mL. Previously: Not documented on the prior study. Nodule characteristics: Composition: Mixed cystic and solid (1). Echogenicity: Hypoechoic (2). Shape: Not taller than wide (0). Margins: Smooth (0). Echogenic Foci: None (0). ACR TI-RADS total points: 3. ACR TI-RADS category: 3. 3. Location: Left inferior. Size: 1.5 x 1.4 x 1.6 cm, volume 1.8 mL. Previously: 1.3 x 1.2 x 1.1 cm, volume 0.9 mL. Nodule characteristics: Composition: Solid/almost completely solid (2). Echogenicity: Hypoechoic (2). Shape: Not taller than wide (0). Margins: Ill-defined (0). Echogenic Foci: None (0). ACR TI-RADS total points: 4. Previous: 4. ACR TI-RADS category: 4. Previous: 4. Significant change in size (>/= 20% in 2 dimensions and minimal increase of 2 mm or 50% or greater increase in volume): Yes Change in features: No Change in ACR TI-RADS risk category: No 4. Location: Left inferior. Size: 0.7 x 0.4 x 0.6 cm, volume 0.08 mL. Previously: Not documented on the prior study. Nodule characteristics: Composition: Solid (2). Echogenicity: Hypoechoic (2). Shape: Not taller than wide (0). Margins: Ill-defined (0). Echogenic Foci: None (0). ACR TI-RADS total points: 4. ACR TI-RADS category: 4. 5. Location: Right mid. Size: 0.6 x 0.3 x 0.7 cm, volume 0.07 mL. Previously: 0.5 x 0.4 x 0.6 cm, volume 0.06 mL. Nodule characteristics: Composition: Mixed cystic and solid (1). Echogenicity: Isoechoic (1). Shape: Not taller than wide (0). Margins: Smooth (0). Echogenic Foci: None (0). ACR TI-RADS total points: 2. Previous: 2. ACR TI-RADS category: 2. Previous: 2. Significant change in size (>/= 20% in 2 dimensions and minimal increase of 2 mm or 50% or greater increase in volume): No Change in features: No Change in ACR TI-RADS risk category: No NODES: No lymphadenopathy is seen in the tissue surrounding the thyroid gland. US/US thyroid IMPRESSION: 1.6 cm left TR4 thyroid nodule meets criteria for biopsy. Fine-needle aspiration recommended. Additional subcentimeter thyroid nodules as detailed above. Measurements limited due to innumerable thyroid nodules. This study was presented Wednesday February 14, 2024 for interpretation. PSA staff will provide results to referring provider at this time. ACR TI-RADS RECOMMENDATION REFERENCE: Ultrasound-guided fine-needle aspiration, follow up ultrasound, no further followup. * TR1 (0 point) and TR2 (2 points): No FNA or followup * TR3 (3 points): FNA if more than or equal to 2.5 cm in maximum dimension, follow up ultrasound in 1, 3 and 5 years if 1.5 to 2.4 cm in maximum dimension. * TR4 (4-6 points): FNA if more than or equal to 1.5 cm in maximum dimension, follow up ultrasound in 1, 2, 3 and 5 years if 1 to 1.4 cm in maximum dimension. * TR5 (more than or equal to 7 points): FNA if more than or equal to 1 cm in maximum dimension, follow up ultrasound every year for 5 years if 0.5 to 0.9 cm in maximum dimension. * TR3, TR4 or TR5 nodules that are below the size threshold for follow up receive no followup.
== END 2024-02-01 10:23 | disposition home or self-care (01) ==
LOC: HO.US 10:22
PROVIDERS: PCP Internal Medicine; Visit Provider Internal Medicine Endocrinology, Diabetes & Metabolism
DX: E04.2 Nontoxic multinodular goiter (principal)
CPT/HCPCS: 76536

== ENCOUNTER 2025-05-26 14:04 | Outpatient (AMB) | payer BC, SELFPAY ==
[2025-05-26 14:05] VITALS: BP 116/74; PULSE 86; O2SAT 99; BMI 37.6
--- NOTE | 2025-05-26 14:05 | A.OFFVIS_ITS ---
Vital Signs 05/26/25 14:05 Height 5 ft 5 in Weight 225 lb 15.581 oz BMI 37.6 BP 116/74 Blood Pressure Location Lt brachial Position Sitting Pulse 86 Pulse Source Pulse Oximeter Pulse Oximetry (%) 99 Oxygen Delivery Method Room Air Intake Visit Reasons: F/U NTMNG Intake Note: Patient present today for NTMNG office visit. 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 She has a longstanding history of subclinical hyperthyroidism, dating back to December of 2007 when her TSH was 0.31. She was seen by Dr. Alvarado in 2009, who recommended no treatment at that time. She was then seeing Dr. Villar, last seen February 2023. She has been following with her PCP ever since with routine TSH. She had a thyroid uptake and scan 06/27/19 with uptake mildly increased to 32.2% at 23 hours, this was in a predominantly homogenous pattern. Antibodies were all negative. She also had a thyroid US which revealed a multinodular thyroid. After discussion regarding potential treatment options and risks vs benefits, she opted to hold off on treatment with thionamine therapy. She did have a thyroid US which revealed a MNG. She underwent FNA of 3 nodules 10/10/2019 with Cytology below: L Mid Pole 1.4 cm nodule - Benign (Lissie Category II) L Mid Pole 1.9 cm nodule - Benign (Lissie Category II) L Inferior 1.0 cm nodule - Benign (Lissie Category II) Repeat thyroid US completed 09/02/2020 revealed significant growth of the LMP nodule to 2.4 cm. Repeat FNA was completed 10/22/2020, with cytology Benign (Lissie Category II). Denies any history of head or neck irradiation. Denies any family history of thyroid cancer. Interval history Ultrasound thyroid 02/01/2024 showed a significant increase in the size of the left inferior/mid nodule which is solid, hypoechoic, previously measuring 1.3 X1.2 X1.1 cm, now measuring 1.5 X1.4 X 1 point cm. Other bilateral subcentimeter nodules noted. I would say that when I reviewed the images myself it is an ill-defined nodule, so it is hard to tell exact margins and maybe that is why there is a discrepancy in measurement, it does appear stable to me, plus this is the same nodule that was biopsied in 2019 with benign cytology and then again in 2020 again with benign cytology. This is reassuring. At this point we will continue surveillance and plan to see her back 1 year ultrasound Physical exam General: sitting comfortably in no acute distress HEENT: normocephalic/atraumatic, Neck: supple, symmetrical, Cardiac: normal heart sounds Pulm: normal breath sounds B/L, no added breath sounds Laboratory Tests 06/10/19 09/09/23 08:23 08:41 TSH 0.41 Free T4 0.96 Thyroglobulin Antibody <1 Thyroid Peroxidase Ab <1 TSH Receptor Antibody 9.9 US THYROID 02/01/24 CLINICAL INFORMATION: Nontoxic multinodular goiter. COMPARISON: Ultrasound soft tissue head/neck thyroid dated 01/18/2023 and 07/16/2021. TECHNIQUE: Linear transducer grayscale and color Doppler examination with attention to the region of the thyroid. FINDINGS: SIZE: Measurements of the thyroid lobes and nodules are given in sagittal, anteroposterior and transverse dimensions respectively. Right Thyroid Lobe: 6.4 x 2.3 x 2.4 cm, volume 18.5 mL. Previously 6.9 x 2.2 x 2.4 cm, volume 19.0 mL. Parenchyma: The gland echotexture is heterogeneous. Thyroid vascularity is increased. Left Thyroid Lobe: 6.4 x 2.6 x 2.5 cm, volume 21.8 mL. Previously 7.5 x 1.9 x 2.9 cm, volume 21.6 mL. Parenchyma: The gland echotexture is heterogeneous. Thyroid vascularity is increased. Isthmus: 0.5 cm in maximum AP dimension. Previously 0.5 cm. Estimated total number of nodules greater than or equal to 1 cm: 1. Casing Runner nodules are described as follows: 1. Location: Left mid. Size: 0.9 x 0.6 x 0.7 cm, volume 0.2 mL. Previously: Not documented on the prior study. Nodule characteristics: Composition: Mixed cystic and solid (1). Echogenicity: Hypoechoic (2). Shape: Not taller than wide (0). Margins: Smooth (0). Echogenic Foci: None (0). ACR TI-RADS total points: 3. ACR TI-RADS category: 3. 2. Location: Left mid. Size: 0.7 x 0.5 x 0.9 cm, volume 0.2 mL. Previously: Not documented on the prior study. Nodule characteristics: Composition: Mixed cystic and solid (1). Echogenicity: Hypoechoic (2). Shape: Not taller than wide (0). Margins: Smooth (0). Echogenic Foci: None (0). ACR TI-RADS total points: 3. ACR TI-RADS category: 3. 3. Location: Left inferior. Size: 1.5 x 1.4 x 1.6 cm, volume 1.8 mL. Previously: 1.3 x 1.2 x 1.1 cm, volume 0.9 mL. Nodule characteristics: Composition: Solid/almost completely solid (2). Echogenicity: Hypoechoic (2). Shape: Not taller than wide (0). Margins: Ill-defined (0). Echogenic Foci: None (0). ACR TI-RADS total points: 4. Previous: 4. ACR TI-RADS category: 4. Previous: 4. Significant change in size (>/= 20% in 2 dimensions and minimal increase of 2 mm or 50% or greater increase in volume): Yes Change in features: No Change in ACR TI-RADS risk category: No 4. Location: Left inferior. Size: 0.7 x 0.4 x 0.6 cm, volume 0.08 mL. Previously: Not documented on the prior study. Nodule characteristics: Composition: Solid (2). Echogenicity: Hypoechoic (2). Shape: Not taller than wide (0). Margins: Ill-defined (0). Echogenic Foci: None (0). ACR TI-RADS total points: 4. ACR TI-RADS category: 4. 5. Location: Right mid. Size: 0.6 x 0.3 x 0.7 cm, volume 0.07 mL. Previously: 0.5 x 0.4 x 0.6 cm, volume 0.06 mL. Nodule characteristics: Composition: Mixed cystic and solid (1). Echogenicity: Isoechoic (1). Shape: Not taller than wide (0). Margins: Smooth (0). Echogenic Foci: None (0). ACR TI-RADS total points: 2. Previous: 2. ACR TI-RADS category: 2. Previous: 2. Significant change in size (>/= 20% in 2 dimensions and minimal increase of 2 mm or 50% or greater increase in volume): No Change in features: No Change in ACR TI-RADS risk category: No NODES: No lymphadenopathy is seen in the tissue surrounding the thyroid gland. US/US thyroid IMPRESSION: 1.6 cm left TR4 thyroid nodule meets criteria for biopsy. Fine-needle aspiration recommended. Additional subcentimeter thyroid nodules as detailed above. Measurements limited due to innumerable thyroid nodules. US Thyroid: 01/18/2023 Right Thyroid Lobe: 6.9 x 2.2 x 2.4 cm, volume 19.0 mL. Previously 7.3 x 2.3 x 3.0 cm, volume 26.0 mL. Parenchyma: The gland echotexture is heterogeneous. Thyroid vascularity is increased. Left Thyroid Lobe: 7.5 x 1.9 x 2.9 cm, volume 21.6 mL. Previously 7.0 x 2.4 x 2.8 cm, volume 22.8 mL. Parenchyma: The gland echotexture is heterogeneous. Thyroid vascularity is increased. Isthmus: 0.5 cm in maximum AP dimension. Previously 0.5 cm. Estimated total number of nodules greater than or equal to 1 cm: 1. Casing Runner nodules are described as follows: 1.? Location: Left mid. ?? ? Size: 1.3 x 1.2 x 1.1 cm, volume 0.93 mL. ?? ? Previously: 1.4 x 1.1 x 0.7 cm, volume 0.55 mL. ?? ? Nodule characteristics: ?? ? Composition: Solid/almost completely solid (2). ?? ? Echogenicity: Hypoechoic (2). ?? ? Shape: Not taller than wide (0). ?? ? Margins: Smooth (0). ?? ? Echogenic Foci: None (0). ? ACR TI-RADS total points: 4 Previous: 4 ?? ? ACR TI-RADS category: 4 Previous: 4 ? Significant change in size (>/= 20% in 2 dimensions and minimal increase of 2 mm or 50% or greater increase in volume): Yes ?? ? Change in features: No ?? ? Change in ACR TI-RADS risk category: No 2.? Location: Right mid. ?? ? Size: 0.8 x 0.6 x 1.1 cm, volume 0.29 mL. ?? ? Previously: 0.7 x 0.9 x 0.4 cm, volume 0.13 mL. ?? ? Nodule characteristics: ?? ? Composition: Solid/almost completely solid (2). ?? ? Echogenicity: Hypoechoic (2). ?? ? Shape: Not taller than wide (0). ?? ? Margins: Smooth (0). ?? ? Echogenic Foci: None (0). ? ACR TI-RADS total points: 4 Previous: 4 ?? ? ACR TI-RADS category: 4 Previous: 4 ? Significant change in size (>/= 20% in 2 dimensions and minimal increase of 2 mm or 50% or greater increase in volume): Yes ?? ? Change in features: No ?? ? Change in ACR TI-RADS risk category: No 3.? Location: Right mid. ?? ? Size: 0.5 x 0.4 x 0.6 cm, volume 0.06 mL. ?? ? Previously: 0.5 x 0.4 x 0.4 cm, volume 0.04 mL. ?? ? Nodule characteristics: ?? ? Composition: Mixed cystic and solid (1). ?? ? Echogenicity: Isoechoic (1). ?? ? Shape: Not taller than wide (0). ?? ? Margins: Smooth (0). ?? ? Echogenic Foci: None (0).? ACR TI-RADS total points: 2 Previous: 2 ?? ? ACR TI-RADS category: 2 Previous: 2 ? Significant change in size (>/= 20% in 2 dimensions and minimal increase of 2 mm or 50% or greater increase in volume): Yes ?? ? Change in features: No ?? ? Change in ACR TI-RADS risk category: No 4.? Location: Right isthmus mid. ?? ? Size: 0.8 x 0.3 x 0.7 cm, volume 0.09 mL. ?? ? Previously: 0.4 x 0.4 x 0.3 cm, volume 0.02 mL. ?? ? Nodule characteristics: ?? ? Composition: Mixed cystic and solid (1). ?? ? Echogenicity: Isoechoic (1). ?? ? Shape: Not taller than wide (0). ?? ? Margins: Smooth (0). ?? ? Echogenic Foci: None (0).? ACR TI-RADS total points: 2 Previous: 2 ?? ? ACR TI-RADS category: 2 Previous: 2 ? Significant change in size (>/= 20% in 2 dimensions and minimal increase of 2 mm or 50% or greater increase in volume): ?? ? Change in features: No ?? ? Change in ACR TI-RADS risk category: No NODES: No lymphadenopathy is seen in the tissue surrounding the thyroid gland. Labs: 02/15/22 [facility] Medical History (Updated 05/25/25 @ 12:17 by Amelie Fu MD) Mild recurrent major depression PARK (generalized anxiety disorder) Vitamin D deficiency Anxiety Multinodular thyroid Subclinical hyperthyroidism Tachycardia Tremor Tremor Surgical History Hx of biopsy History of cryosurgery History of tubal ligation Family History Father Hypertension Chronic mental illness Alcoholism Substance use disorder Mother No problems noted. Maternal Grandfather Diabetes Maternal Aunt Chronic mental illness Social History Household Members: Children Housing: Apartment Alcohol intake: current Alcohol intake frequency: a few times a week Alcohol type: hard liquor Patient Tobacco Use Status: Former Tobacco user e-Cigarette/Vaping Use: Never Used Second Hand Smoke Exposure: No service: No Current occupational status: employed Current occupational exposures/hazards: No Gender identity: Female Cognitive needs: No Hearing needs: No Vision needs: Yes Female Reproductive History Menstrual Age of Menarche: 11 Physical Exam Vital Signs: Last Vital Signs Pulse 86 05/26/25 14:05 BP 116/74 05/26/25 14:05 Pulse Ox 99 05/26/25 14:05 Oxygen Delivery Method Room Air 05/26/25 14:05 BMI result Body Mass Index 37.6 Assessment & Plan Assessment & Plan (1) Multinodular thyroid: Code(s): E04.2 - Nontoxic multinodular goiter Category: Medical Plan: 45-year-old female with no family history of thyroid cancer, with no personal history of head or neck radiation who was found to have thyroid nodules in 2019. She has had prior FNA biopsies in 2019 of the L Mid Pole 1.4 cm nodule - Benign (Lissie Category II) L Mid Pole 1.9 cm nodule - Benign (Lissie Category II) L Inferior 1.0 cm nodule - Benign (Lissie Category II) Repeat thyroid US completed 09/02/2020 revealed significant growth of the LMP nodule to 2.4 cm. Repeat FNA was completed 10/22/2020, with cytology Benign (Lissie Category II). Subsequently she has been followed with surveillance ultrasounds. Ultrasound thyroid 02/01/2024 showed a significant increase in the size of the left inferior/mid nodule which is solid, hypoechoic, previously measuring 1.3 X1.2 X1.1 cm, now measuring 1.5 X1.4 X 1 point cm. Other bilateral subcentimeter nodules noted. I would say that when I reviewed the images myself it is an ill-defined nodule, so it is hard to tell exact margins and maybe that is why there is a discrepancy in measurement, it does appear stable to me, plus this is the same nodule that was biopsied in 2019 with benign cytology and then again in 2020 again with benign cytology. This is reassuring. At this point we will continue surveillance and plan to see her back 1 year ultrasound Plan: -ordered ultrasound of the thyroid to be done in April 2026 prior to follow up in May 2026 -follow up in May 2026 (2) Subclinical hyperthyroidism: Code(s): E05.90 - Thyrotoxicosis, unspecified without thyrotoxic crisis or storm Category: Medical Plan: 06/27/19 with uptake mildly increased to 32.2% at 23 hours, this was in a predominantly homogenous pattern. Antibodies were all negative. She also had a thyroid US which revealed a multinodular thyroid. Unclear but could have been seronegative autoimmune disease versus toxic multinodular goiter. However labs then normalized with last TFTs from September 2023 showing normal TSH and free T4. She has not had any labs for over a year. We will repeat labs now. Ordered TSH, free T4, total T3 to be done now, we will reach out with the results We will need another set of labs prior to follow up in 1 year Plan I spent 30 minutes in reviewing the record, seeing the patient and documenting in the medical record. Orders: Orders Thyroid Stimulating Hormone Today E05.90 - Thyrotoxicosis, unspecified without thyrotoxic crisis or storm Free T4 (Free Thyroxine) Today E05.90 - Thyrotoxicosis, unspecified without thyrotoxic crisis or storm Triiodothyronine T3 Total Today E05.90 - Thyrotoxicosis, unspecified without thyrotoxic crisis or storm thyroid 04/13/26 E04.2 - Nontoxic multinodular goiter Patient Instructions: Do thyroid blood work now We will reach out with the results Do ultrasound of the thyroid in April 2026, somebody is going to call you to schedule this, please make sure this is done a few weeks prior to your next follow up with me in May 2026 We will also need another set of repeat blood work prior to your next appointment, orders will be placed, you can just do this a few days prior to your next follow up with me Coding Level of Care Code Est Pt Level 4 (18962) Diagnoses Multinodular thyroid E04.2 Subclinical hyperthyroidism E05.90 Time Spent (min) 30
== END 2025-05-26 14:41 | disposition home or self-care (01) ==
LOC: HO.ENCR 14:04
PROVIDERS: PCP Internal Medicine; Visit Provider Student in an Organized Health Care Education/Training Program
DX: E04.2 Nontoxic multinodular goiter (principal); E05.90 Thyrotoxicosis, unspecified without thyrotoxic crisis or storm
CPT/HCPCS: 99214

== ENCOUNTER 2025-05-26 14:04 | Outpatient (REF) | payer BC, SELFPAY ==
[2025-05-26 16:20] LABS: Free T4 (Free Thyroxine) 1.05 ng/dL (0.71-1.85); Thyroid Stimulating Hormone 0.37 uIU/mL (0.32-4.0)
== END 2025-05-26 14:05 | disposition home or self-care (01) ==
LOC: HO.LAB 14:04
PROVIDERS: PCP Internal Medicine; Visit Provider Student in an Organized Health Care Education/Training Program
DX: E05.21 Thyrotoxicosis with toxic multinodular goiter with thyrotoxic crisis or storm (principal)
CPT/HCPCS: 36415; 84439; 84443; 84480

== ENCOUNTER 2025-07-14 16:36 | Outpatient (AMB) | payer BC, SELFPAY ==
[2025-07-14 16:41] VITALS: BP 110/82; PULSE 84; O2SAT 98; BMI 38.0
--- NOTE | 2025-07-14 16:41 | A.OFFPC_ITS ---
Vital Signs 07/14/25 16:41 Height 5 ft 5 in Weight 228 lb 4 oz BMI 38.0 BP 110/82 Blood Pressure Location Lt brachial Position Sitting Pulse 84 Pulse Source Pulse Oximeter Pulse Oximetry (%) 98 Oxygen Delivery Method Room Air Intake Visit Reasons: follow up Hand Spring Former Required: No Accompanied by: Self / Same As Patient Allergies No Known Allergies Allergy (Mild, Verified 07/14/25 17:06) NOT APPLICABLE Medication List - Last Reconciled 07/14/25 by Amelie Fu MD cholecalciferol (vitamin D3) 50 mcg PO DAILY 30 days lorazepam 0.5 mg PO DAILY PRN 30 days Tobacco use date assessed: 07/14/25 Dental Screening Dental Screen Date: 07/14/25 Did you have a dental visit in the last 12 months?: No Did you have a dental problem in the last 6 months where you did not have access to dental care?: No Was dental information given to patient?: No HPI HPI Comments History of Present Illness Details The patient is a 45-year-old female presenting for a regular physical examination. She has no known drug allergies and her current medications include vitamin D and lorazepam as needed for anxiety. She has a past surgical history of a tubal ligation, cryosurgery, and multiple biopsies. Her father has a history of high blood pressure and recent onset of dementia. The patient has a remote history of smoking, having quit about 17 years ago, and currently drinks alcohol a few times per week. A recent depression screening (PHQ-9) was mildly positive with a score of 3. Regarding health maintenance, her last Tdap vaccine was in 2015. Her last mammogram was last year, and her last Pap smear was in 2020. She follows with an shoe laster and had recent blood work performed for them. [facility] Medical History Mild recurrent major depression PARK (generalized anxiety disorder) Vitamin D deficiency Anxiety Multinodular thyroid Subclinical hyperthyroidism Tachycardia Tremor Tremor Surgical History Hx of biopsy History of cryosurgery History of tubal ligation Family History Father Hypertension Chronic mental illness Alcoholism Substance use disorder Mother No problems noted. Maternal Grandfather Diabetes Maternal Aunt Chronic mental illness Social History Household Members: Children Housing: Apartment Alcohol intake: current Alcohol intake frequency: a few times a week Alcohol type: hard liquor Patient Tobacco Use Status: Former Tobacco user e-Cigarette/Vaping Use: Never Used Second Hand Smoke Exposure: No service: No Current occupational status: employed Current occupational exposures/hazards: No Gender identity: Female Cognitive needs: No Hearing needs: No Vision needs: Yes Female Reproductive History Menstrual Age of Menarche: 11 Questionnaire PHQ-9 Over the last 2 weeks, how often have you been bothered by any of the following problems? 1. Little interest or pleasure in doing things: not at all 2. Feeling down, depressed, or hopeless: several days 3. Trouble falling or staying asleep, or sleeping too much: several days 4. Feeling tired or having little energy: not at all 5. Poor appetite or overeating: not at all 6. Feeling bad about yourself - or that you are a failure or have let yourself or your family down: several days 7. Trouble concentrating on things, such as reading the newspaper or watching te levision: not at all 8. Moving or speaking so slowly that other people could have noticed. Or the opposite - being so fidgety or restless that you have been moving around a lot more than usual: not at all 9. Thoughts that you would be better off or of hurting yourself in some way: not at all Total score: 3 Depression Screening Interpretation: Positive Depression Screening Follow-up: Existing condition and Follow-up Visit Requested Depression Screening Done: Yes [id number] - PHQ-9 Billing: Yes Source: Developed by Drs. Hugh Watts, Isabell Pollard, Darrel Berg and colleagues, with an educational devon from [employer]. Thrive Questionnaire Date Thrive assessed: 07/14/25 I am a: Patient What is your living situation today?: I have a steady place to live Within the past 12 months, did the food you bought not last and you didn't have the money to get more?: Sometimes True Within the past 12 months, did you worry whether your food would run out before you got money to buy more?: Sometimes True Do you have trouble paying for medicines?: No Do you have trouble getting transportation to medical appointments?: No Do you have trouble paying your heating and electricity bill?: No Do you have trouble taking care of your child, family member or friend?: No Do you have trouble with day-to-day activities such as bathing, preparing meals, shopping, managing finances, etc.?: No Are you currently unemployed and looking for a job?: No Are you interested in more education?: Yes Please select the resources that you would like help with: None Currently or been in a relationship where the following occur: No concerns reported THRIVE Score: 2 AUDIT C Alcohol Use Questionnaire (AUDIT-C) 1. How often do you have a drink containing alcohol?: 2-3 times a week 2. How many drinks containing alcohol do you have on a typical day when you are drinking?: 1 or 2 3. How often do you have six or more drinks on one occasion?: Less than monthly Total Score: 4 PARK-7 AMB Questionnaire PARK-7 Date PARK - 7 assessed: 07/14/25 Feeling nervous, anxious, or on edge: 1 = Several days Not being able to stop or control worryin = Not at all Worrying too much about different things: 0 = Not at all Trouble relaxin = Not at all Being so restless that it is hard to sit still: 0 = Not at all Becoming easily annoyed or irritable: 1 = Several days Feeling afraid as if something awful might happen: 0 = Not at all Total PARK-7 score (0-4 normal; 5-9 mild; 10-14 moderate; 15-21 severe): 2 Source: Developed by Drs. Hugh Watts, Isabell Pollard, Darrel Berg and colleagues, with an educational devon from [employer]. PARK-7 Assessment Billing PARK-7 Assessment Tool: PARK-7 Assessment 51278 Review of Systems Const All systems reviewed & are unremarkable except as noted in HPI and below Card Denies chest pain at rest, Denies chest pain with activity, Denies edema, Denies irregular heart rhythm, Denies claudication, Denies dyspnea, Denies dyspnea on exertion, Denies orthopnea, Denies paroxysmal nocturnal dyspnea and Denies slow heart rate Resp Denies cough, Denies dyspnea and Denies dyspnea on exertion GI Denies abdominal pain, Denies change in bowel habits, Denies excessive flatus, Denies nausea and Denies vomiting Physical exam (Primary Care) Vital Signs: Last Vital Signs Pulse 84 07/14/25 16:41 BP 110/82 07/14/25 16:41 Pulse Ox 98 07/14/25 16:41 Oxygen Delivery Method Room Air 07/14/25 16:41 BMI result Body Mass Index 38.0 BMI Assessment/Plan discussion: High BMI High, discussed plan: lifestyle, weight reduction, dietary and physical activity Tobacco/Smoking Status: Tobacco use Status Tobacco use date assessed 07/14/25 07/14/25 16:42 Patient Tobacco Use Status Former Tobacco user 07/14/25 16:42 e-Cigarette/Vaping Use Never Used 07/14/25 16:42 PHQ-9: PHQ-9 Score PHQ-9: Total score 3 07/14/25 16:42 Depression Screening Interpretation: Positive Depression Screening Follow-up: Existing condition and Follow-up Visit Requested Thrive Assessment: Date of Thrive Assessment Date Thrive assessed 07/14/25 07/14/25 16:42 Currently or been in a relationship where the following occur: No concerns reported Resp Effort & Inspection: normal respiratory effort Auscultation: clear to auscultation bilaterally Cardio Jugular venous distension: no JVD Rate: regular rate Rhythm: regular rhythm Heart sounds: S1 normal heart sound present and S2 normal heart sound present Extrem General: Yes full ROM Coding Level of Care Code Est Pt Prev Care 40-64y(33023) Diagnoses Physical exam Z00.00 Additional Codes PHQ-9 - 78461 - PHQ-9 Billing: Yes ([id number]) PARK-7 Assessment Billing - PARK-7 Assessment Tool: PARK-7 Assessment [id number] ([id number]) Time Spent (min) 30 Assessment & Plan Assessment & Plan (1) Physical exam: Code(s): Z00.00 - Encounter for general adult medical examination without abnormal findings Category: Medical Plan Plan 1. Annual Physical Exam An order will be placed for a mammogram. Fasting labs will be ordered to assess cholesterol, glucose, and kidney and liver function. The patient's next Pap smear is due next year. A discussion about initiating colonoscopy screening will occur next year. The patient is up to date on her Tdap vaccination, with the next dose due in 2025.
--- OUTSIDE RECORDS SUMMARY | 2025-07-14 18:04 | XMS_ITS | Encounter Summary ---
Author Organization [employer] Address [address] [place] [address] Care Team Providers Care Cigar Packer And Shader Name Role Phone Unavailable Primary Care Provider Unavailabl e Encounter Details Date Type Department Care Team (Latest Contact Info) Description 12/23/2020 Abstract [facility] CONVERSIONS Dental, Provider, DDS Social History Tobacco Use Types Packs/Day Years Used Date Smoking Tobacco: Never Assessed Comments Unknown Sex and Gender Information Value Date Recorded Sex Assigned at Female 07/04/2022 10:18 AM EDT Legal Sex Female 10:18 AM EDT Gender Identity Female 07/04/2022 10:18 AM EDT Sexual Orientation Don't know 07/04/2022 10 :18 AM EDT documented as of this encounter Plan of Treatment Not on file documented as of this encounter Visit Diagnoses Not on filedocumented in this encounter
--- OUTSIDE RECORDS SUMMARY | 2025-07-14 18:04 | XMS_ITS | Clinical Summary ---
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 Name Role Phone Unavailable Primary Care Provider Unavailabl e Social History Tobacco Use Types Packs/Day Years Used Date Smoking Tobacco: Never Assessed Comments Unknown Sex and Gender Information Value Date Recorded Sex Assigned at Female 07/04/2022 10:18 AM EDT Legal Sex Female 10:18 AM EDT Gender Identity Female 07/04/2022 10:18 AM EDT Sexual Orientation Don't know 07/04/2022 10 :18 AM EDT Plan of Treatment Health Maintenance Due Date Last Done Comments Depression Screening 1981 Disability Screening 1981 Alcohol/Substance Use Screening 1993 Tobacco Screening 1993 Family Planning (PISQ) 1996 HPV Vaccines (1 - 3-dose series) 1996 DTaP/Tdap/Td Vaccines (1 - Tdap) 2000 Hepatitis B Vaccines (1 of 3 - 19+ 3-dose series) 2000 Pap Smear 2002 Cervical Cancer Screening 2011 HPV/Cotest 2011 Mammogram 2021 COVID-19 Vaccine (1 - 2023-2 5 season) 2025 Influenza Vaccine (#1) 2025 Zoster Vaccines (1 of 2) 2031 RSV Patients and Pa tients Aged 60 years or older (1 - 1-dose 75+ series) 2056 HIB Vaccines Aged Out No longer eligi ble based on patient's age to complete this topic Hepatitis A Vaccines Aged Out No long er eligible based on patient's age to complete this topic IPV Vaccines Aged Out No longer eligi ble based on patient's age to complete this topic Meningococcal B Vaccine Aged Out No l onger eligible based on patient's age to complete this topic Meningococcal Vaccine Aged Out No orestes adilene eligible based on patient's age to complete this topic Pneumococcal Vaccine: Pediat rics (0 to 5 Years) and At-Risk Patients (6 to 49) Years Aged Out No longer eligible b ased on patient's age to complete this topic RSV under 20 months Aged Out No longe r eligible based on patient's age to complete this topic Rotavirus Vaccines Aged Out No longer eligible based on patient's age to complete this topic
--- OUTSIDE RECORDS SUMMARY | 2025-07-14 18:04 | XMS_ITS | Encounter Summary ---
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
== END 2025-07-14 17:17 | disposition home or self-care (01) ==
PROVIDERS: PCP Internal Medicine; Visit Provider Internal Medicine
DX: Z00.00 Encounter for general adult medical examination without abnormal findings (principal)

== ENCOUNTER → 2025-07-14 16:36 | Outpatient (BNVA) | payer BC, SELFPAY | PROVIDERS: PCP Internal Medicine; Visit Provider Internal Medicine | DX: Z00.00 Encounter for general adult medical examination without abnormal findings (principal) | CPT/HCPCS: 96127 ==